=== PATIENT | male | born 1960 | race Caucasian/White ===

== ENCOUNTER 2021-03-18 17:34 | Emergency (ER) | payer MEDICAID ==
[~2021-03-18] VITALS: Ht 172.7 cm; Wt 83.5 kg
--- NOTE | 2021-03-18 17:34 | NUR ---
BROUGHT IN BY [facility], PLACED IN BED #4 AND TRIAGED. REPORT GIVEN TO WILIAN
[2021-03-18 17:35] VITALS: BP_SYST 113
--- NOTE | 2021-03-18 19:30 | NUR ---
assumed care of pt from bebeto whitley
--- NOTE | 2021-03-18 20:30 | NUR ---
FACILITY STATED THEY WILL COME OUTPATIENT ADMITTING CLERK PT
[2021-03-18 21:01] VITALS: BP_SYST 124
--- NOTE | 2021-03-18 21:03 | NUR ---
Patient given written and verbal discharge instructions and verbalizes understanding. ER MD discussed with patient the results and treatment provided. Patient in stable condition. ID arm band removed. Patient educated on pain management and to follow up with PMD. Pain Scale 0/10. Opportunity for questions provided and answered. Medication side effect fact sheet provided.
== END 2021-03-18 21:03 | disposition home or self-care (01) ==
LOC: SED 17:34
DX: R00.1 Bradycardia, unspecified (principal)
CPT/HCPCS: 93005; 99283